=== PATIENT | female | born 2000 | race African-American/Black ===

== ENCOUNTER 2019-05-10 15:40 | Inpatient (IN) | payer MEDICAID ==
[~2019-05-10] VITALS: Ht 167.6 cm; Wt 92.5 kg
[2019-05-10] MEDS ORDERED: BUPR75 PO (16:18)
[2019-05-10] MEDS ORDERED: LURA40 PO (16:18)
[2019-05-10] MEDS ORDERED: HALOPERIDOL 5 MG TABLET PO PRN (16:30)
[2019-05-10] MEDS ORDERED: LORazepam 2 MG TABLET PO PRN (16:30)
[2019-05-10 16:45] VITALS: BP 142/75
[2019-05-10] MEDS: ZOLPIDEM TARTRATE 10 MG TABLET PO PRN (20:33)
[2019-05-11 00:05] VITALS: BP 124/82
[2019-05-11 07:39] LABS: BASOPHILS % (AUTO) 0.5 % (0.0-2.0); EOSINOPHILS % (AUTO) 1.9 % (1.0-6.0); HEMATOCRIT 41.1 % (36-46); HEMOGLOBIN 13.1 g/dL (12.0-16.0); LYMPHOCYTES # (AUTO) 2.8 K/uL (1.0-4.8); LYMPHOCYTES % (AUTO) 54.8 % (22.0-44.0); MEAN CORPUSCULAR HEMOGLOBIN 24.3 pg (26.0-34.0); MEAN CORPUSCULAR HGB CONC 31.8 G/dL (31.0-37.0); MEAN CORPUSCULAR VOLUME 76 fL (80-100); MONOCYTES # (AUTO) 0.4 K/uL (0.1-1.0); MONOCYTES % (AUTO) 7.7 % (2.0-9.0); NEUTROPHILS # (AUTO) 1.8 K/uL (1.8-7.7); NEUTROPHILS % (AUTO) 35.1 % (40.0-70.0); PLATELET COUNT (AUTO) 286 K/uL (150-450); RED BLOOD CELL COUNT(AUTO) 5.38 MIL/uL (4.00-5.20); RED CELL DISTRIBUTION WIDTH 17.5 % (11.5-14.5)
[2019-05-11 08:12] LABS: ALANINE AMINOTRANSFERASE 22 U/L (12-78); ALBUMIN 3.6 g/dL (3.4-5.0); ALKALINE PHOSPHATASE 84 U/L (46-116); ANION GAP 8 mmol/L (8-16); ASPARTATE AMINOTRANSFERASE 10 U/L (15-37); BILIRUBIN,TOTAL 0.4 mg/dL (0.1-1.0); CALCIUM, TOTAL 8.9 mg/dL (8.8-10.5); CARBON DIOXIDE 27 mmol/L (22-29); CHLORIDE 105 mmol/L (98-107); CHOL/HDL RATIO 4.4 (3.9-5.7); CHOLESTEROL 180 mg/dL (131-200); CREATININE 0.99 mg/dL (0.60-1.30); FREE T4 (FREE THYROXINE) 1.01 ng/dL (0.76-1.46); GLOMERULAR FILTR. RATE CALC > 60 mL/min (>60); GLUCOSE,RANDOM 76 mg/dL (70-110); HCG,QUANTITATIVE < 1 mIU/mL (0-6); HDL CHOLESTEROL 41 mg/dL (40-60); LDL CHOL (CALC.) 127 mg/dL (0-130); POTASSIUM 3.9 mmol/L (3.5-5.1); SODIUM SERUM 140 mmol/L (136-145); THYROID STIMULATING HORMONE 1.73 uIU/mL (0.36-3.74); TOTAL PROTEIN, SERUM 7.4 g/dL (6.4-8.2); TRIGLYCERIDES 60 mg/dL (15-150); UREA NITROGEN, BLOOD 15 mg/dL (7-18)
[2019-05-11 08:18] LABS: HEMOGLOBIN A1C 5.3 % (3.8-5.6)
[2019-05-11 08:38] VITALS: BP 129/66
[2019-05-11] MEDS: SERTRALINE HCL 50 MG TABLET PO SCH (13:12)
[2019-05-11 16:35] VITALS: BP 116/57
[2019-05-11] MEDS: NICOTINE 14 MG/24 HOUR PATCH TD SCH (18:52)
[2019-05-12 00:40] VITALS: BP 111/62
[2019-05-12 07:58] LABS: APPEARANCE,URINE CLEAR (CLEAR); BILIRUBIN,URINE NEGATIVE (NEGATIVE); GLUCOSE, URINE (UA) NEGATIVE (NEGATIVE); KETONES,URINE NEGATIVE (NEGATIVE); LEUKOCYTE ESTERASE ,URINE NEGATIVE (NEGATIVE); NITRATE,URINE NEGATIVE (NEGATIVE); OCCULT BLOOD,URINE NEGATIVE (NEGATIVE); PH,URINE 6.5 (5.0-8.0); PROTEIN,URINE NEGATIVE (NEGATIVE)
[2019-05-12 08:03] LABS: AMPHET/METH SCREEN,URINE NEGATIVE (NEGATIVE); BARBITURATE SCREEN, URINE NEGATIVE (NEGATIVE); BENZODIAZEPINES SCREEN,URINE NEGATIVE (NEGATIVE); CANNABINOID SCREEN,URINE POSITIVE (NEGATIVE); COCAINE SCREEN,URINE NEGATIVE (NEGATIVE); METHADONE SCREEN, URINE NEGATIVE (NEGATIVE); OPIATE SCREEN,URINE NEGATIVE (NEGATIVE)
[2019-05-12 08:04] LABS: PHENCYCLIDINE SCREEN,URINE NEGATIVE (NEGATIVE)
[2019-05-12 08:09] VITALS: BP 127/74
[2019-05-12] MEDS: SERTRALINE HCL 50 MG TABLET PO SCH (08:27)
[2019-05-12] MEDS: NICOTINE 14 MG/24 HOUR PATCH TD SCH (08:27)
[2019-05-12] MEDS ORDERED: NICOTINE 14 MG/24 HOUR PATCH TD SCH (09:00)
[2019-05-12 16:05] VITALS: BP 133/75
[2019-05-12] MEDS: ZOLPIDEM TARTRATE 10 MG TABLET PO PRN (20:45)
[2019-05-13 00:13] VITALS: BP 117/54
[2019-05-13] MEDS: SERTRALINE HCL 50 MG TABLET PO SCH (08:05)
[2019-05-13] MEDS: NICOTINE 14 MG/24 HOUR PATCH TD SCH (08:05)
[2019-05-13 08:07] VITALS: BP 127/74
[2019-05-13 16:51] VITALS: BP 135/76
[2019-05-13] MEDS: ZOLPIDEM TARTRATE 10 MG TABLET PO PRN (20:50)
[2019-05-14 00:57] VITALS: BP 109/64
[2019-05-14 08:16] VITALS: BP 107/68
[2019-05-14] MEDS: NICOTINE 14 MG/24 HOUR PATCH TD SCH (08:45)
[2019-05-14] MEDS: SERTRALINE HCL 50 MG TABLET PO SCH (08:45)
[2019-05-14] MEDS ORDERED: SERT50TA12 PO (09:58)
== END 2019-05-14 13:50 | disposition home or self-care (01) | DRG 751 ==
LOC: EDSEX → B2S 16:31
DX: F33.2 Major depressive disorder, recurrent severe without psychotic features (principal); R45.851 Suicidal ideations; R00.1 Bradycardia, unspecified; F12.10 Cannabis abuse, uncomplicated; F19.10 Other psychoactive substance abuse, uncomplicated; F41.9 Anxiety disorder, unspecified; F43.12 Post-traumatic stress disorder, chronic; X58.XXXA Exposure to other specified factors, initial encounter; Z79.899 Other long term (current) drug therapy; Z91.5 Personal history of self-harm
CPT/HCPCS: 80307; 83036; 84439; 84443

== ENCOUNTER 2021-03-17 20:34 | Emergency (ER) | payer OTHER, MEDICAID ==
[~2021-03-17] VITALS: Ht 167.6 cm; Wt 95.5 kg
[~2021-03-17 20:34] MED LIST: SERT-439 PO
[2021-03-18] MEDS ORDERED: ACETAMINOPHEN 325 MG TABLET PO ONE ×2 (00:45→04:00)
[2021-03-18 01:02] LABS: EOSINOPHILS % (AUTO) 1.8 % (1.0-6.0); HEMATOCRIT 37.6 % (36-46); HEMOGLOBIN 12.9 g/dL (12.0-16.0); MEAN CORPUSCULAR HGB CONC 34.4 G/dL (31.0-37.0); MEAN CORPUSCULAR VOLUME 81 fL (80-100); MONOCYTES % (AUTO) 13.8 % (2.0-9.0); NEUTROPHILS # (AUTO) 1.3 K/uL (1.8-7.7); NEUTROPHILS % (AUTO) 29.4 % (40.0-70.0); PLATELET COUNT (AUTO) 262 K/uL (150-450); RED BLOOD CELL COUNT(AUTO) 4.61 MIL/uL (4.00-5.20); RED CELL DISTRIBUTION WIDTH 13.8 % (11.5-14.5)
[2021-03-18 01:03] LABS: LYMPHOCYTES # (AUTO) 2.5 K/uL (1.0-4.8); MONOCYTES # (AUTO) 0.6 K/uL (0.1-1.0)
[2021-03-18 01:13] LABS: ANION GAP 7 mmol/L (8-16); CALCIUM, TOTAL 8.5 mg/dL (8.8-10.5); CARBON DIOXIDE 28 mmol/L (22-29); CHLORIDE 103 mmol/L (98-107); CREATININE 1.07 mg/dL (0.60-1.30); GLOMERULAR FILTR. RATE CALC > 60 mL/min (>60); GLUCOSE,RANDOM 89 mg/dL (70-110); POTASSIUM 3.8 mmol/L (3.5-5.1); SODIUM SERUM 138 mmol/L (136-145); UREA NITROGEN, BLOOD 14 mg/dL (7-18)
[2021-03-18 01:26] LABS: ALANINE AMINOTRANSFERASE 22 U/L (12-78); ALBUMIN 3.3 g/dL (3.4-5.0); ALKALINE PHOSPHATASE 82 U/L (46-116); ASPARTATE AMINOTRANSFERASE 13 U/L (15-37); BILIRUBIN,TOTAL 0.2 mg/dL (0.1-1.0); HCG,QUANTITATIVE 1 mIU/mL (0-6); TOTAL PROTEIN, SERUM 7.4 g/dL (6.4-8.2)
[2021-03-18 02:51] LABS: COVID AG,FIA SOURCE NASAL SWAB
[2021-03-18 03:30] VITALS: BP 141/85
== END 2021-03-18 03:50 | disposition home or self-care (01) ==
LOC: EMS 20:39
DX: B34.9 Viral infection, unspecified (principal); J40 Bronchitis, not specified as acute or chronic; M79.18 Myalgia, other site; F12.90 Cannabis use, unspecified, uncomplicated; Z20.822 Contact with and (suspected) exposure to COVID-19
CPT/HCPCS: 36415; 80053; 84702; 85025; 87426; 99283; G0480